=== PATIENT | female | born 1995 | race Caucasian/White ===

== ENCOUNTER 2024-07-04 12:22 | Day surgery (SDC) | payer OTHER ==
[~2024-07-04] VITALS: Ht 167.6 cm; Wt 130.8 kg
[~2024-07-04 12:22] MED LIST: Lactated Ringer's 1,000 ML IV ONE; Lidocaine 2% 5 ML SDV ONE; Lidocaine HCl/Pf 1% 5 ML VIAL ONE
[2024-07-04] MEDS ORDERED: METFORMIN ER G500 MG (12:43)
[2024-07-04] MEDS ORDERED: ESCI10 (12:43)
[2024-07-04] MEDS ORDERED: ALBU90OI (12:43)
[2024-07-04] MEDS ORDERED: MIRALAX1714 (12:44)
[2024-07-04] MEDS ORDERED: MONT10T (12:44)
[2024-07-04] MEDS ORDERED: PROG100 (12:44)
[2024-07-04] MEDS ORDERED: SPIR50 (12:44)
[2024-07-04] MEDS ORDERED: Lactated Ringer's 1,000 ML IV ONE (13:06)
[2024-07-04] MEDS ORDERED: propofoL 50 ML IV ONE ×2 (13:22→13:32)
[2024-07-04] MEDS ORDERED: Ipratropium/Albuterol SulF 2.5-0.5MG/3 ML Amp ONE (14:17)
== END 2024-07-04 14:43 | disposition home or self-care (01) ==
LOC: ORSCSDS 12:22
PROVIDERS: Internal Medicine Gastroenterology
PROC: 0DBE8ZX Excision of Large Intestine, Via Natural or Artificial Opening Endoscopic, Diagnostic (ICD-10-PCS; principal; 2024-07-04 13:45)
PROC: 0DB58ZX Excision of Esophagus, Via Natural or Artificial Opening Endoscopic, Diagnostic (ICD-10-PCS; principal; 2024-07-04 13:45)
PROC: 0DB98ZX Excision of Duodenum, Via Natural or Artificial Opening Endoscopic, Diagnostic (ICD-10-PCS; principal; 2024-07-04 13:45)
PROC: 0DB68ZX Excision of Stomach, Via Natural or Artificial Opening Endoscopic, Diagnostic (ICD-10-PCS; principal; 2024-07-04 13:45)
DX: R10.13 Epigastric pain (principal); R10.32 Left lower quadrant pain; R11.2 Nausea with vomiting, unspecified; R19.4 Change in bowel habit; E11.9 Type 2 diabetes mellitus without complications; G47.33 Obstructive sleep apnea (adult) (pediatric); R63.0 Anorexia; R06.02 Shortness of breath; Z68.42 Body mass index [BMI] 45.0-49.9, adult; Z79.84 Long term (current) use of oral hypoglycemic drugs; Z79.899 Other long term (current) drug therapy; Z87.891 Personal history of nicotine dependence
CPT/HCPCS: 82947; 88305; 88342; J2001; J2704; J7120